=== PATIENT | female | born 1980 | race Two or more races ===

== ENCOUNTER 2019-04-03 19:46 | Emergency (ER) | payer MEDICAID ==
[~2019-04-03] VITALS: Ht 154.9 cm; Wt 90.7 kg
[2019-04-03] MEDS ORDERED: methylPREDNISolone SOD SUCC 125 MG/2 ML VL IM ONE (22:15)
[2019-04-03 22:20] VITALS: BP 118/58
== END 2019-04-03 22:23 | disposition home or self-care (01) ==
LOC: ER 19:53
DX: J45.901 Unspecified asthma with (acute) exacerbation (principal); Z98.51 Tubal ligation status
CPT/HCPCS: 96372; 99283; J2930